=== PATIENT | male | born 2005 | race Caucasian/White ===

== ENCOUNTER 2025-07-12 10:43 | Outpatient (CLI) | payer BC, SELFPAY ==
[2025-07-12 14:25] LABS: Strep A DNA Probe* NOT DETECTED (Not Detectd)
== END 2025-07-12 10:44 | disposition home or self-care (01) ==
LOC: KYNREF 10:43
PROVIDERS: PCP Nurse Practitioner Family; Visit Provider Nurse Practitioner Family
DX: J02.9 Acute pharyngitis, unspecified (principal)
CPT/HCPCS: 87651